=== PATIENT | female | born 1970 | race Caucasian/White ===

== ENCOUNTER 2018-06-19 12:10 | Emergency (ER) | payer OTHER ==
[~2018-06-19] VITALS: Ht 160 cm; Wt 86.4 kg
[2018-06-19 13:01] LABS: HEMATOCRIT 36.5 % (36.0-46.0); HEMOGLOBIN 12.3 G/DL (11.9-15.5); MCH 31.5 PG (29.0-34.0); MCHC 33.7 G/DL (30.0-36.0); MCV 93.4 FL (83-99); PLATELET COUNT 212 K/uL (156-360); RBC DIS.WIDTH-SD 44.2 % (39-53); RED BLOOD COUNT 3.91 M/uL (3.80-5.20); WHITE BLOOD COUNT 9.1 K/uL (4.1-10.2)
[2018-06-19 13:03] LABS: APPEARANCE CLEAR ((CLEAR)); BILIRUBIN NEGATIVE; BLOOD SMALL; COLOR STRAW ((YELLOW)); GLUCOSE (STRIP) NEGATIVE; KETONES NEGATIVE; LEUKOCYTES SMALL; NITRITE NEGATIVE; PROTEIN (STRIP) NEGATIVE; SPECIFIC GRAVITY 1.006 (1.000-1.030); UROBILINOGEN 0.2 MG/DL (0.2-1.0)
[2018-06-19 13:06] LABS: BACTERIA RARE /HPF; EPITHELIAL CELLS RARE /HPF; MUCUS TRACE /LPF; RED BLOOD CELLS 0-5 /HPF (0-5); UCUL ADDED? NO; WHITE BLOOD CELLS 0-5 /HPF (0-5)
[2018-06-19 13:12] LABS: ALBUMIN 4.1 g/dL (3.2-4.8); CHLORIDE 106 mEq/L (99-109); POTASSIUM 3.6 mEq/L (3.7-5.4); SODIUM 142 mEq/L (136-147)
[2018-06-19 13:14] LABS: GLUCOSE 70 mg/dL (70-99); TOTAL PROTEIN 7.2 g/dL (6.4-8.3)
[2018-06-19 13:16] LABS: TOTAL BILIRUBIN 0.5 mg/dL (0.0-1.0)
[2018-06-19 13:17] LABS: ALKALINE PHOSPHATASE 114 IU/L (3-129)
[2018-06-19 13:18] LABS: CREATININE 1.1 mg/dL (0.6-1.3); GFR ESTIMATE (CALCULATED) 56 mL/min/
[2018-06-19 13:19] LABS: AST (GOT) 20 IU/L (2-34); UREA NITROGEN (BUN) 8 mg/dL (9-23)
[2018-06-19 13:21] LABS: ALT (GPT) 28 IU/L (3-49)
[2018-06-19 13:28] LABS: QUANTITATIVE HCG < 4.0 MIU/ML
[2018-06-19] MEDS ORDERED: PERCOCET 5/31 TABLET PO (15:44)
[2018-06-19] MEDS ORDERED: CIPRO500 MG PO (15:44)
[2018-06-19] MEDS ORDERED: FLAGYL500 MG PO (15:44)
[2018-06-19] MEDS ORDERED: ZOFRAN4 MG PO (16:04)
[2018-06-19 16:12] VITALS: BP 111/66
== END 2018-06-19 16:13 | disposition home or self-care (01) ==
LOC: EME 12:10
DX: K57.32 Diverticulitis of large intestine without perforation or abscess without bleeding (principal); Z88.6 Allergy status to analgesic agent
CPT/HCPCS: 74177; 80053; 81003; 84702; 85027; 99281; 99284; J7030

== ENCOUNTER 2018-06-25 12:48 | Emergency (ER) | payer OTHER ==
[~2018-06-25] VITALS: Ht 160 cm; Wt 88.7 kg
[~2018-06-25 12:48] MED LIST: CIPRO500 MG PO; FLAGYL500 MG PO; PERCOCET 5/31 TABLET PO; ZOFRAN4 MG PO
[2018-06-25] MEDS ORDERED: ATARAX,VISTARIL50 MG PO (14:34)
[2018-06-25] MEDS ORDERED: AUGMENTIN875 MG PO (14:34)
[2018-06-25] MEDS ORDERED: REGLAN5 MG PO (14:35)
[2018-06-25] MEDS ORDERED: DIFLUCAN150 MG PO (14:45)
[2018-06-25 14:47] VITALS: BP 101/70
== END 2018-06-25 14:55 | disposition home or self-care (01) ==
LOC: EME 12:48
DX: L29.9 Pruritus, unspecified (principal); R21 Rash and other nonspecific skin eruption; R11.2 Nausea with vomiting, unspecified; T50.905A Adverse effect of unspecified drugs, medicaments and biological substances, initial encounter; Z87.19 Personal history of other diseases of the digestive system; Z98.890 Other specified postprocedural states; Z88.6 Allergy status to analgesic agent
CPT/HCPCS: 99281; 99284

== ENCOUNTER 2018-06-29 08:50 | Inpatient (IN) | payer OTHER ==
[~2018-06-29] VITALS: Ht 160 cm; Wt 76.2 kg
[~2018-06-29 08:50] MED LIST changes: +ATARAX,VISTARIL50 MG PO; +AUGMENTIN875 MG PO; +DIFLUCAN150 MG PO; +REGLAN5 MG PO
[2018-06-29 09:23] LABS: BASOPHIL (%) 0.1 % (0-1); EOSINOPHIL (%) 0.4 % (0-5); HEMATOCRIT 36.6 % (36.0-46.0); HEMOGLOBIN 12.4 G/DL (11.9-15.5); IMMATURE GRANULOCYTE (%) 0.6 % (0.0-0.7); LYMPHOCYTE (%) 2.8 % (15-42); LYMPHOCYTE COUNT 0.3 K/uL (1.0-2.8); MCH 31.3 PG (29.0-34.0); MCHC 33.9 G/DL (30.0-36.0); MCV 92.4 FL (83-99); MONOCYTE (%) 4.3 % (3-12); MONOCYTE COUNT 0.4 K/uL (0-0.8); NEUTROPHIL (%) 91.8 % (45-76); NEUTROPHIL COUNT 8.7 K/uL (1.8-6.4); PLATELET COUNT 223 K/uL (156-360); RBC DIS.WIDTH-CV 12.5 % (11.8-14.6); RBC DIS.WIDTH-SD 42.7 % (39-53); RED BLOOD COUNT 3.96 M/uL (3.80-5.20); WHITE BLOOD COUNT 9.5 K/uL (4.1-10.2)
[2018-06-29 09:35] LABS: ALBUMIN 3.6 g/dL (3.2-4.8); CHLORIDE 103 mEq/L (99-109); POTASSIUM 3.8 mEq/L (3.7-5.4); SODIUM 138 mEq/L (136-147)
[2018-06-29 09:37] LABS: GLUCOSE 123 mg/dL (70-99); TOTAL PROTEIN 6.5 g/dL (6.4-8.3)
[2018-06-29 09:39] LABS: TOTAL BILIRUBIN 0.4 mg/dL (0.0-1.0)
[2018-06-29 09:41] LABS: ALKALINE PHOSPHATASE 81 IU/L (3-129); GFR ESTIMATE (CALCULATED) > 59 mL/min/
[2018-06-29 09:42] LABS: AST (GOT) 15 IU/L (2-34); UREA NITROGEN (BUN) 11 mg/dL (9-23)
[2018-06-29 09:44] LABS: ALT (GPT) 15 IU/L (3-49); LIPASE 22 U/L (1.0-51.0)
[2018-06-29] MEDS ORDERED: AUGMENTIN875 MG PO (12:20)
[2018-06-29] MEDS ORDERED: ATARAX,VISTARIL50 MG PO (12:21)
[2018-06-29] MEDS ORDERED: ZOFRAN4 MG PO (12:22)
[2018-06-29] MEDS ORDERED: ERGOCALCIF50000 UNIT PO (12:23)
[2018-06-29] MEDS ORDERED: FISH OIL 1,0001 EAC7 PO (12:23)
[2018-06-29] MEDS ORDERED: TIROSINT137 MCG PO (12:24)
[2018-06-29 13:46] VITALS: BP 97/53
[2018-06-29 13:47] VITALS: BP 90/58
[2018-06-29 15:30] VITALS: BP 99/57
[2018-06-29 17:45] VITALS: BP 112/58
[2018-06-30] VITALS: BP 110/51
[2018-06-30 05:58] LABS: HEMATOCRIT 33.9 % (36.0-46.0); HEMOGLOBIN 11.2 G/DL (11.9-15.5); MCH 31.2 PG (29.0-34.0); MCV 94.4 FL (83-99); PLATELET COUNT 210 K/uL (156-360); RBC DIS.WIDTH-CV 12.6 % (11.8-14.6); RBC DIS.WIDTH-SD 43.8 % (39-53); RED BLOOD COUNT 3.59 M/uL (3.80-5.20); WHITE BLOOD COUNT 11.2 K/uL (4.1-10.2)
[2018-06-30 06:13] LABS: CHLORIDE 109 MEQ/L (99-109); CREATININE 0.8 MG/DL (0.6-1.3); GFR ESTIMATE (CALCULATED) > 59 mL/min/; GLUCOSE 155 mg/dL (70-99); POTASSIUM 3.9 MEQ/L (3.7-5.4); SODIUM 140 MEQ/L (136-147); UREA NITROGEN (BUN) 8 mg/dL (9-23)
[2018-06-30 07:30] VITALS: BP 100/51
[2018-06-30 15:00] VITALS: BP 103/51
[2018-06-30 23:41] VITALS: BP 112/57
[2018-07-01 06:07] LABS: HEMOGLOBIN 9.6 G/DL (11.9-15.5); MCH 31.4 PG (29.0-34.0); MCHC 33.1 G/DL (30.0-36.0); MCV 94.8 FL (83-99); PLATELET COUNT 185 K/uL (156-360); RBC DIS.WIDTH-CV 12.8 % (11.8-14.6); RBC DIS.WIDTH-SD 44.6 % (39-53); RED BLOOD COUNT 3.06 M/uL (3.80-5.20); WHITE BLOOD COUNT 7.8 K/uL (4.1-10.2)
[2018-07-01 06:53] LABS: CHLORIDE 111 MEQ/L (99-109); CREATININE 0.9 MG/DL (0.6-1.3); GFR ESTIMATE (CALCULATED) > 59 mL/min/; POTASSIUM 3.4 MEQ/L (3.7-5.4); SODIUM 143 MEQ/L (136-147); UREA NITROGEN (BUN) 9 mg/dL (9-23)
[2018-07-01 06:54] LABS: GLUCOSE 110 mg/dL (70-99)
[2018-07-01 08:21] VITALS: BP 121/63
[2018-07-01] MEDS ORDERED: ATARAX,VISTARIL50 MG PO (12:13)
[2018-07-01] MEDS ORDERED: METRONIDAZOLE500 MG PO (13:18)
[2018-07-01] MEDS ORDERED: CEFDINIR300 MG PO (13:18)
[2018-07-01 15:29] VITALS: BP 146/72
== END 2018-07-01 16:00 | disposition home or self-care (01) | DRG 392 ==
LOC: EME 08:50 → EDOF 11:53 → 5EAST 11:53 → ENRESERV 11:54 → 5EAST 12:54
PROVIDERS: Emergency Medicine; Hospitalist; Physician Assistant
DX: K57.32 Diverticulitis of large intestine without perforation or abscess without bleeding (principal); I95.9 Hypotension, unspecified; E03.9 Hypothyroidism, unspecified
CPT/HCPCS: 71045; 74177; 80048; 80053; 83605; 83690; 85025; 85027; 85610; 87040; 99281; 99285; J0696; J1200; J1644; J2405; J2543; J2930; J7030; J7050; Q0177; S0030